=== PATIENT | female | born 1990 | race Caucasian/White ===

== ENCOUNTER 2018-09-23 08:25 | Emergency (ER) | payer MEDICAID, SELFPAY ==
[2018-09-23 08:27] VITALS: BP 191/104; PULSE 105; RESP 14; TEMP 36; O2SAT 95; BMI 47.8
--- NOTE | 2018-09-23 08:44 | RAD_ITS ---
STUDY: X-RAY - LEFT ANKLE REASON FOR EXAM: Female, 28 years old. Pain. TECHNIQUE: 3 view(s) of the ankle. COMPARISON: None. FINDINGS: Normal visualized distal tibia and fibula. Normal medial and lateral malleoli. Normal tibiotalar articulation and ankle mortise. Normal visualized talus and calcaneus. The visualized subtalar, talonavicular, calcaneocuboid and tarsal articulations are normal. Soft tissue swelling. RAD/Ankle min 3 Views IMPRESSION: Soft tissue swelling. Electronically Signed: Yaron Cosme MD at 9:29 EST Tel [phone], Service support ,
--- NOTE | 2018-09-23 08:45 | ED.VISSUMM ---
- ER Visit Summary Date of Service: 09/23/18 Chief Complaint: Left ankle pain History of Present Illness: The patient is a 28 F who has left ankle pain. Started today. She got up out of bed and heard a pop in the left ankle. She states she has a history of problems with this ankle for years but has not been evaluated for it in the past. She did nothing for it. She was able to ambulate on it. Is worse with walking. Physical Examination: Vital signs reviewed. Left ankle exam reveals tenderness over the lateral malleolus. There is no swelling. Full range of motion with pain. She has no Achilles, fifth metatarsal or fibular head tenderness. Test Results: Left ankle x-ray interpreted by myself reveals no evidence of acute fracture. Emergency Department Course and Treatment: Patient has negative x-rays. She received naproxen here and for home. She will follow-up with her PCP Treatment Plan: [] Disposition: Discharge Impression: Left ankle pain This note was generated with Code42 dictation software. It may contain incorrect words, spelling, and punctuation that were not noted in review of the chart prior to signing ED Disposition - Plan for ED Patient: Chief Complaint: Lower Extremity Injury Referrals: NOT,DEFINED [NON-STAFF] -
[2018-09-23] MEDS: Naproxen 500 MG Tablet PO (08:56)
--- NOTE | 2018-09-23 09:13 | ED.DEP ---
ED Disposition - Plan for ED Patient: Disposition: Home or Assisted Living Chief Complaint: Lower Extremity Injury Instructions: ED Sprain Ankle W X Ray Prescriptions: Naproxen [Naprosyn] 500 mg PO BID PRN #20 tablet Referrals: NOT,DEFINED [NON-STAFF] - Additional Instructions: Your prescription was electronically transferred to [facility]
[2018-09-23 09:17] VITALS: BP 124/77; PULSE 62; RESP 15; O2SAT 98
--- OUTSIDE RECORDS SUMMARY | 2018-11-08 21:40 | XMS RPT_ITS ---
:1990 Author Organization [facility] Care Team Providers Name Role Phone Georgi Gregg Attending Unavailable Primay Care Physicia, No Primary Care Unavailable PROBLEMS PROBLEMS No Problem Records FoundPROCEDURES PROCEDURES No Procedure Records FoundRESULTS RESULTS EMERGENCY DEPARTMENT Observed: 09/23/2018 Status: F Source: [place] SUMMARY 9:13 AM [facility] REPOSITORY [facility] Medical Records Department [address] [place] [address] Emergency Department Summary 09/23/18 0845 MR#: [id number] Acct: [id number] Name: SAAIDA QUIÑONEZ Rep #: [id number] : 1990 28 From: Georgi Gregg MD PCP: Care Physician, No Primary Status: REG ER - ER Visit Summary Date of Service: 09/23/18 Chief Complaint: Left ankle pain History of Present Illness: The patient is a 28 F who has left ankle pain. Started today. She got up out of bed and heard a pop in the left ankle. She states she has a history of problems with this ankle for years but has not been evaluated for it in the past. She did nothing for it. She was able to ambulate on it. Is worse with walking. Physical Examination: Vital signs reviewed. Left ankle exam reveals tenderness over the lateral malleolus. There is no swelling. Full range of motion with pain. She has no Achilles, fifth metatarsal or fibular head tenderness. Test Results: Left ankle x-ray interpreted by myself reveals no evidence of acute fracture. Emergency Department Course and Treatment: Patient has negative x-rays. She received naproxen here and for home. She will follow-up with her PCP Treatment Plan: [] Disposition: Discharge Impression: Left ankle pain This note was generated with [employer] dictation software. It may contain incorrect words, spelling, and punctuation that were not noted in review of the chart prior to signing ED Disposition - Plan for ED Patient: Chief Complaint: Lower Extremity Injury Referrals: NOT,DEFINED [NON-STAFF] - What to do if you have Problems For any increased pain, shortness of breath, bleeding, nausea or vomiting, chest pain, or any unexpected problems, contact your Primary Care Provider. Call [facility] ([phone]) or report to the closest Emergency Room. Call 911 if necessary. 09/23/18912 <Electronically signed by Georgi Gregg MD> Date Georgi Gregg MD Cosigner Signature (If Indicated): Date CC: No Primary Care Physician DISCHARGE INSTRUCTION Observed: 09/23/2018 Status: F Source: [place] 9:13 AM [facility] REPOSITORY [facility] Medical Records Department [address] [place] [address] Discharge Instruction 09/23/18912 MR#: [id number] Acct: [id number] Name: SAADIA QUIÑONEZ Lakhwinder Rep #: [id number] : 1990 28 From: Georgi Gregg MD PCP: Care Physician, No Primary Status: REG ER ED Disposition - Plan for ED Patient: Disposition: Home or Assisted Living Chief Complaint: Lower Extremity Injury Instructions: ED Sprain Ankle W X Ray Prescriptions: Naproxen [Naprosyn] 500 mg PO BID PRN #20 tablet Referrals: NOT,DEFINED [NON-STAFF] - Additional Instructions: Your prescription was electronically transferred to [facility] What to do if you have Problems For any increased pain, shortness of breath, bleeding, nausea or vomiting, chest pain, or any unexpected problems, contact your Primary Care Provider. Call [facility] ([phone]) or report to the closest Emergency Room. Call 911 if necessary. 12/14/18 0913 <Electronically signed by Georgi Gregg MD> Date Georgi Gregg MD Cosigner Signature (If Indicated): Date CC: No Primary Care Physician ANKLE MIN 3 VIEWS Observed: 09/23/2018 Status: F Source: SARAH 8:44 AM [facility] REPOSITORY [facility] Imaging Services [address] [place] [address] Ankle min 3 Views MR#: [id number] Acct: [id number] Name: SAADIA QUIÑONEZ Rep #: [id number] : 1990 F 28 From: Yaron Cosme MD PCP: Care Physician, No Primary Status: DEP ER Study: Ankle min 3 Views Date of Exam: 09/23/18 Exam# [id number] Ordering Dr: Georgi Gregg MD STUDY: X-RAY - LEFT ANKLE REASON FOR EXAM: Female, 28 years old. Pain. TECHNIQUE: 3 view(s) of the ankle. COMPARISON: None. FINDINGS: Normal visualized distal tibia and fibula. Normal medial and lateral malleoli. Normal tibiotalar articulation and ankle mortise. Normal visualized talus and calcaneus. The visualized subtalar, talonavicular, calcaneocuboid and tarsal articulations are normal. Soft tissue swelling. RAD/Ankle min 3 Views IMPRESSION: Soft tissue swelling. Electronically Signed: Yaron Cosme MD at 9:29 EST Tel [phone], Service support , CC: No Primary Care Physician; Georgi Gregg MD Manufacturer Representative: Signed ALLERGIES ALLERGIES DATE TYPE / CODE NAME / CODE REACTION SEVERITY SOURCE 09/23/2018 [facility]F00 [facility] [address](SNOMED [id number](RXNOR Repository CT) M) ENCOUNTERS ENCOUNTERS ADMIT/DISCHARGE ACCOUNT ADMITTING ENCOUNTER LOCATION SOURCE NUMBER CLASS 09/23/2018/ [id number] Emergency Sarah [place] 8 [facility] ing:ED Repository PAYERS PAYERS ENCOUNTER GUARANTOR PAYER SUBSCRIBER SOURCE 09/23/2018 SAADIA Keane Primary Insurance:[facility] SAADIA Lakhwinder [place] [id number] [facility] Number: [id number] [id number] Repository [address]Cuv: (330) Date:[id number] [phone] () [address] [place] [address] 91993YC: 09/23/2018 Secondary NOT GIVENUNK Sarah Insurance:SELF PAY [facility] Number: Effective Repository Date:2018-09-23
== END 2018-09-23 09:18 | disposition home or self-care (01) ==
PROVIDERS: Emergency Provider Emergency Medicine
DX: M25.572 Pain in left ankle and joints of left foot (principal)
CPT/HCPCS: 73610; 99283